=== PATIENT | female | born 2000 | race Caucasian/White ===

== ENCOUNTER 2020-06-16 16:29 | Emergency (ER) | payer MEDICAID ==
[~2020-06-16] VITALS: Ht 162.6 cm; Wt 79.8 kg
[2020-06-16 17:36] LABS: BASOPHIL % 0.2 % (0-2); PLATELET COUNT 257 x10^3mcL (130-400); RED CELL DISTRIBUTION WIDTH 13.6 % (11.5-14.5)
[2020-06-16 17:37] LABS: CALCIUM 8.7 mg/dL (8.5-10.1); CHLORIDE SERUM 104 mmol/L (98-107); CREATININE SERUM 0.7 mg/dL (0.6-1.0); GFR1 > 60 mL/min; GLUCOSE SERUM 99 mg/dL (74-106); POTASSIUM SERUM 4.2 mmol/L (3.5-5.1); SODIUM SERUM 139 mmol/L (136-145)
[2020-06-16 17:42] LABS: ALBUMIN 4.1 g/dL (3.4-5.0); ALKALINE PHOSPHATASE 90 U/L (46-116); ALT/SGPT 35 U/L (14-59); AST/SGOT 16 U/L (15-37); BILIRUBIN TOTAL 0.71 mg/dL (0.20-1.00)
[2020-06-16 18:59] VITALS: BP 127/78
== END 2020-06-16 18:59 | disposition home or self-care (01) ==
LOC: ED 16:29
PROVIDERS: Emergency Medicine
DX: R10.30 Lower abdominal pain, unspecified (principal); R10.84 Generalized abdominal pain; R19.7 Diarrhea, unspecified; R10.2 Pelvic and perineal pain
CPT/HCPCS: J1885; Q0092